=== PATIENT | female | born 1950 | race Caucasian/White ===

== ENCOUNTER → 2018-08-14 | Outpatient (CLI) | payer OTHER, MEDICARE ==
[~2018-08-14] MED LIST: DIATRIZOATE MEGL/DIATRIZOA SOD 30 ML BTL PO ONE; IOPAMIDOL 370 MG/ML 200 ML INFUS..BTL INJ ONE; SODIUM CHLORIDE 0.9% 50ML 50 ML ONE
[2018-08-14 17:34] LABS: BLOOD UREA NITROGEN 17 mg/dL (7-26); BUN/CREATININE RATIO 19 (6-25); CREATININE, SERUM 0.88 mg/dL (0.57-1.11); EST GLOMERULAR FILTRATION RATE > 60 ML/MIN (60-)
--- NOTE | 2018-08-14 21:37 | Diagnostic Imaging Report ---
EXAM: CT ABDOMEN/PELVIS W DATE: 08/14/2018 4:41 PM INDICATION: Hernia, diverticulitis, pain COMPARISON: None TECHNIQUE: The abdomen and pelvis were scanned using a multidetector helical scanner. Coronal and sagittal reformations were obtained. CT low dose techniques were utilized, as applicable. IV Contrast: 100 ml Isovue 300/370 FINDINGS: LOWER THORAX: 6 mm right lower lobe pulmonary nodule. LIVER/BILIARY: No masses. No ductal dilatation. GALLBLADDER: Unremarkable SPLEEN: Unremarkable PANCREAS: Unremarkable ADRENALS: No nodules KIDNEYS: Likely bilateral peripelvic cysts. Additional too small to characterize renal hypodensities. No definite hydronephrosis GI TRACT: Small hiatal hernia. Focal wall thickening and inflammatory change about the sigmoid colon in a region of diverticula. Normal appendix. VESSELS: Mild atherosclerotic changes PERITONEUM/RETROPERITONEUM: No free air or fluid LYMPH NODES: No lymphadenopathy REPRODUCTIVE ORGANS/BLADDER: Limited assessment due to streak artifact from bilateral hip arthroplasties. Large rounded pelvic mass measuring 13.5 cm presumably a fibroid. Right adnexal simple appearing 8.8 cm cystic lesion. SOFT TISSUES: Small fat-containing umbilical hernia. BONES: Multilevel degenerative changes, worse of the lumbar spine. Bilateral hip arthroplasties. IMPRESSION: 1. Acute uncomplicated sigmoid diverticulitis. 2. Large presumed fibroid and 9 cm right adnexal cystic lesion, abnormal in a postmenopausal patient. Recommend nonemergent follow-up [employer] consult and pelvic ultrasound or MRI. 3. 6 mm right lower lobe pulmonary nodule. Recommend 6-12 month follow-up chest CT. Signed by: Dr Kiera Layne MD on 08/14/2018 9:34 PM
== END ==
LOC: CT 16:33
PROVIDERS: ATTEND Surgery
DX: R10.32 Left lower quadrant pain (principal)
CPT/HCPCS: 36415; 74177; 82565; 84520; Q9663; Q9967